=== PATIENT | female | born 1980 | race Caucasian/White ===

== ENCOUNTER 2020-09-23 16:23 | Outpatient (REF) | payer MEDICAID, SELFPAY ==
[2020-09-23 19:38] LABS: Calculated LDL 93 mg/dL (<100); Cholesterol 223 mg/dL (<200); HDL Cholesterol 123 mg/dL (40-60); Triglyceride 38 mg/dL (<150)
== END 2020-09-23 16:43 ==
LOC: NCHCN 16:23
PROVIDERS: PCP Family Medicine; Visit Provider Family Medicine
DX: Z00.00 Encounter for general adult medical examination without abnormal findings (principal)
CPT/HCPCS: 80061

== ENCOUNTER 2021-06-02 11:05 | Outpatient (REF) | payer MEDICAID, SELFPAY ==
--- NOTE | 2021-06-02 09:15 | PAPFT_PTH ---
PATIENT: Miller Moncada LOC: [facility] U#:[id number] AGE/SX: 40/F ROOM: RE06/02/[address]: JADE Mcdonald : 1980 BED: DIS: 06/02/2021 SPEC #: [id number] RECD: 06/02/21 12:49 STATUS: LAUREANO REQ #: [id number] MYAH: 06/02/21 09:[address]: Neelima Lala DEPT: [facility] Cytology RECD BY: Elin Frausto ENTERED: 06/02/21 12:49 SP TYPE: PAPFT OTHR DR: Virginia Raya V Tissues: 1 - CX/ENDOCX FOR PAP SMEARS Procedures: PAP THIN PREP/[facility] Screening HPV DNA PROBE Comments: [id number]
[2021-06-04 15:23] LABS: Chlamydia Result Negative (Negative); GC Result Negative (Negative)
== END 2021-06-02 11:06 | disposition home or self-care (01) ==
LOC: LBN 11:05
PROVIDERS: PCP Family Medicine; Visit Provider Nurse Practitioner Family
DX: Z11.3 Encounter for screening for infections with a predominantly sexual mode of transmission (principal); Z12.4 Encounter for screening for malignant neoplasm of cervix; Z01.419 Encounter for gynecological examination (general) (routine) without abnormal findings; Z11.51 Encounter for screening for human papillomavirus (HPV)
CPT/HCPCS: 87491; 87591; 88142; 87624

== ENCOUNTER 2022-12-06 01:21 | Outpatient (CLI) | payer BC, SELFPAY ==
--- NOTE | 2022-12-06 16:40 | DI.MAMMO_ITS ---
Exam(s) MAMMO SCREENING EXAM: MAMMO SCREENING CLINICAL HISTORY: SCREENING, Z12.31 TECHNIQUE: Mammograms were interpreted according to the usual protocol including computer analysis w [employer] CAD system, tomosynthesis and C-view imaging. COMPARISON: none. Baseline examination. FINDINGS: The breasts are composed of heterogeneously dense fibroglandular densities, Breast Density category C . No suspicious masses or suspicious microcalcifications are seen. No skin thickening or abnormal axillary lymph nodes are seen. IMPRESSION: BI-RADS Category 1, Negative mammogram. Yearly screening mammography is recommended. Breast Density Category C, heterogeneously Dense. The mammogram demonstrates the patient's breast tissue is dense. Dense breast tissue is very common a nd is not abnormal but dense breast tissue can make it harder to find cancer on a mammogram. Also, de nse breast tissue may increase breast cancer risk. This information about the result of the mammogram report was provided to the patient to raise their awareness. Use this report when you speak with the patient about their risks for breast cancer, which includes their family history. At that time, you may recommend additional screening tests (Ultrasound or MRI) as they might be useful based on their r isk. A negative radiographic report should not delay biopsy if a dominant or clinically suspicious mass is present. Up to ten percent of cancers are not identified on mammography. A negative report may reinforce clinical impression. Adenosis and dense breasts may obscure an underlying neoplasm. False positive reports average 6 to 10%.
== END 2022-12-06 01:41 ==
PROVIDERS: PCP Family Medicine; Visit Provider Family Medicine
DX: Z12.31 Encounter for screening mammogram for malignant neoplasm of breast (principal)
CPT/HCPCS: 77063; 77067